=== PATIENT | female | born 1960 | race Two or more races ===

== ENCOUNTER 2022-08-09 09:40 | Emergency (ER) | payer MEDICAID, OTHER ==
[~2022-08-09] VITALS: Ht 149.9 cm; Wt 80.1 kg
[2022-08-09 09:55] VITALS: BP 141/65
[2022-08-09] MEDS ORDERED: DICL-163 PO (11:41)
== END 2022-08-09 12:09 | disposition home or self-care (01) ==
LOC: ER 09:40
DX: S86.911A Strain of unspecified muscle(s) and tendon(s) at lower leg level, right leg, initial encounter (principal); X58.XXXA Exposure to other specified factors, initial encounter; Y93.01 Activity, walking, marching and hiking; Y92.89 Other specified places as the place of occurrence of the external cause; Y99.8 Other external cause status
CPT/HCPCS: 93971